=== PATIENT | male | born 1980 | race Hispanic/Latino ===

== ENCOUNTER 2017-06-21 06:18 | Emergency (ER) | payer SELFPAY ==
[~2017-06-21] VITALS: Ht 165.1 cm; Wt 90.9 kg
[2017-06-21] MEDS ORDERED: NAPROSYN500 MG PO (07:27)
[2017-06-21 07:44] VITALS: BP 147/99
== END 2017-06-21 07:44 | disposition home or self-care (01) | DRG 563 ==
LOC: ED 06:18
DX: S43.032A Inferior subluxation of left humerus, initial encounter (principal); M25.512 Pain in left shoulder; X50.0XXA Overexertion from strenuous movement or load, initial encounter; Y93.E1 Activity, personal bathing and showering; Y92.002 Bathroom of unspecified non-institutional (private) residence as the place of occurrence of the external cause

== ENCOUNTER 2018-05-20 07:10 | Emergency (ER) | payer OTHER ==
[~2018-05-20] VITALS: Ht 165.1 cm; Wt 86.0 kg
[~2018-05-20 07:10] MED LIST: NAPROSYN500 MG PO
[2018-05-20] MEDS ORDERED: NAPROSYN500 MG PO (07:50)
[2018-05-20 08:00] VITALS: BP 147/94
== END 2018-05-20 08:10 | disposition home or self-care (01) | DRG 563 ==
LOC: ED 07:10
DX: S63.611A Unspecified sprain of left index finger, initial encounter (principal); W23.0XXA Caught, crushed, jammed, or pinched between moving objects, initial encounter; Y93.89 Activity, other specified; Y92.89 Other specified places as the place of occurrence of the external cause; Y99.0 Civilian activity done for income or pay

== ENCOUNTER 2018-06-04 00:38 | Emergency (ER) | payer MEDICARE ==
[~2018-06-04] VITALS: Ht 165.1 cm; Wt 82.0 kg
[2018-06-04] MEDS ORDERED: MOTRIN800 MG PO (02:42)
[2018-06-04] MEDS ORDERED: PERCOCET 5/325M1 TAB PO (02:42)
[2018-06-04] MEDS ORDERED: ORPHENADRINE C100 M1 PO (02:42)
[2018-06-04 03:20] VITALS: BP 152/90
== END 2018-06-04 03:25 | disposition home or self-care (01) ==
LOC: ED 00:38
DX: S76.912A Strain of unspecified muscles, fascia and tendons at thigh level, left thigh, initial encounter (principal); W18.30XA Fall on same level, unspecified, initial encounter; Y93.E8 Activity, other personal hygiene; Y92.002 Bathroom of unspecified non-institutional (private) residence as the place of occurrence of the external cause

== ENCOUNTER 2018-06-11 19:17 | Emergency (ER) | payer MEDICARE ==
[~2018-06-11] VITALS: Ht 165.1 cm; Wt 93.6 kg
[~2018-06-11 19:17] MED LIST changes: +MOTRIN800 MG PO; +ORPHENADRINE C100 M1 PO; +PERCOCET 5/325M1 TAB PO
[2018-06-11 20:15] VITALS: BP 141/84
== END 2018-06-11 20:15 | disposition home or self-care (01) ==
LOC: ED 19:17
DX: S70.12XA Contusion of left thigh, initial encounter (principal); I10 Essential (primary) hypertension; W18.2XXA Fall in (into) shower or empty bathtub, initial encounter; Y93.E1 Activity, personal bathing and showering; Y92.002 Bathroom of unspecified non-institutional (private) residence as the place of occurrence of the external cause

== ENCOUNTER 2020-01-10 07:47 | Emergency (ER) | payer MEDICARE | END 2020-01-10 07:50 | disposition left against medical advice (07) | LOC: ED 07:47 → LWOBS 07:50 | DX: Z91.19 Patient's noncompliance with other medical treatment and regimen (principal) ==

== ENCOUNTER 2020-07-04 22:59 | Emergency (ER) | payer MEDICARE ==
[~2020-07-04] VITALS: Ht 165.1 cm; Wt 90.0 kg
[2020-07-05 00:26] LABS: HEMATOCRIT 49.8 % (39.0-50.0); HEMOGLOBIN 16.6 g/dl (14.0-18.0); IMMATURE GRANULOCYTES 0.4 % (0.0-5.0); MEAN CELL VOLUME 84.7 fL CALC (80.0-100.0); MEAN CORPUSCULAR HGB 28.2 pG CALC (26.0-32.0); MEAN CORPUSCULAR HGB CONC 33.3 g/dL CAL (32.0-36.0); NEUT# 4.67 thou/uL (1.82-7.42); RED BLOOD COUNT 5.88 mill/uL (4.70-6.10); RED CELL DISTRI WIDTH 12.9 % (11.5-15.5)
[2020-07-05 00:47] LABS: ANION GAP 17 (6-22 (CALC)); BUN 18 mg/dL (9-20); BUN/CREATININE RATIO 23 (12-20 (CALC)); CARBON DIOXIDE 26 mmol/l (22-30); CHLORIDE 104 mmol/l (95-108); CREATININE 0.8 mg/dL (0.7-1.3); GFR > 60 ML/MIN (>=60 (CALC)); GFR FOR AFR.AMER. > 60 ML/MIN (>=60 (CALC)); POTASSIUM 4.5 mmol/l (3.5-5.1); SODIUM 143 mmol/l (137-146)
[2020-07-05 00:55] VITALS: BP 158/94
[2020-07-05] MEDS ORDERED: TYLENOL # 31 TA1 PO (01:03)
== END 2020-07-05 01:18 | disposition home or self-care (01) ==
LOC: ED 22:59
PROVIDERS: Family Medicine
DX: M24.412 Recurrent dislocation, left shoulder (principal); I10 Essential (primary) hypertension; F17.200 Nicotine dependence, unspecified, uncomplicated

== ENCOUNTER 2021-09-02 19:01 | Emergency (ER) | payer MEDICARE ==
[~2021-09-02] VITALS: Ht 165.1 cm; Wt 95.0 kg
[~2021-09-02 19:01] MED LIST changes: +TYLENOL # 31 TA1 PO
[2021-09-02 19:25] VITALS: BP 146/84
[2021-09-02 19:32] VITALS: BP 170/105
[2021-09-02 20:38] VITALS: BP 145/80
== END 2021-09-02 19:55 | disposition home or self-care (01) ==
LOC: ED 19:01
DX: H00.12 Chalazion right lower eyelid (principal); I10 Essential (primary) hypertension; F17.200 Nicotine dependence, unspecified, uncomplicated